=== PATIENT | female | born 1995 | race Caucasian/White ===

== ENCOUNTER 2021-01-31 09:27 | Emergency (ER) | payer MEDICAID, SELFPAY ==
[2021-01-31 09:32] VITALS: BP 105/67; PULSE 100; RESP 18; TEMP 36.8; O2SAT 98; BMI 20.5
--- NOTE | 2021-01-31 11:09 | ED_ITS ---
HPI - URI/Sore Throat General Chief Complaint: Upper Respiratory Symptoms Stated Complaint: NASAL CHEST COGESTION BODY ACHES Time Seen by Provider: 01/31/21 11:08 Source: patient Limitations: no limitations History of Present Illness HPI Narrative: 25 y/o femjorge presents with 2 days of upper respiratory symptoms. Two days ago she started sneezing, and yesterday she had a sore throat, with body aches, and headache. No fevers. No cough. She has not been vaccinated for COVID. Per daughter at school had a COVID exposure, but her daughter is asymptomatic. Patient can eat and drink and swallow and cn open her mouth all the way. She has been taking DayQuil and NyQuil. She has no significant medical history. MD elicited complaint: sore throat and nasal congestion Onset (ago): day(s) (2) Consistency: constant Severity: moderate Pain scale (0-10): 6 Able to tolerate fluids by mouth: Yes Exacerbating factors: nothing Relieving factors: OTC cold medicine Context: sick contacts Associated symptoms: myalgias, headache, nasal congestion and sore throat Treatments prior to arrival: cold medicine Related Data Previous Rx's Medication Instructions Recorded Magic Mouthwash 5 ml PO BID-TID #240 ml 01/31/21 Diphen/Lido/Antacid 1:1:1 240 mL suspension Allergies Allergy/AdvReac Type Severity Reaction Status Date / Time No Known Allergies Allergy Verified 01/31/21 11:54 Review of Systems Constitutional: Constitutional: Reports body ache(s), Denies chills, Reports fatigue, Denies fever(s), Reports headache(s), Reports malaise and Denies weakness Eyes: Eyes: Denies blurry vision and Denies diplopia ENT: Denies dizziness, Denies otalgia, Reports headache(s), Denies mouth pain, Reports nasal congestion, Reports nasal discharge, Denies odynophagia, Denies sinus pain, Denies sinus pressure, Reports sore throat and Denies throat swelling Cardiovascular: Cardiovascular: Denies chest pain, Denies lightheadedness and Denies dyspnea Respiratory: Respiratory: Denies chest congestion, Denies cough and Denies dyspnea Gastrointestinal: Gastrointestinal: Denies abdominal pain, Denies hematochezia, Denies constipation, Denies diarrhea, Denies nausea, Denies odynophagia and Denies vomiting Integumentary/Breasts: Skin/Breast: Denies erythema and Denies rash Neurologic: Denies confusion, Denies dizziness, Reports headache(s) and Denies weakness Psychiatric: Psychiatric: Denies anxiety, Denies confusion and Denies depression Endocrine: Endocrine: Reports fatigue Allergic/Immunologic: Allergic/Immunologic: Denies throat swelling PMFSH Past Medical History Medical History No known health problems Social History Social History Advance Directives: No Advance Directives Information Provided: No Patient : No Physical Exam Vital Signs: Vital Signs: Last Vital Signs Temp 98.2 F 01/31/21 09:32 Pulse 100 01/31/21 09:32 Resp 18 01/31/21 09:32 BP 105/67 01/31/21 09:32 Pulse Ox 98 01/31/21 09:32 Body Mass Index 20.5 Const: General: no acute distress and alert; No confusion Nutritional Appearance: well nourished Orientation/consciousness: patient oriented x3 and No confusion Limitations: no limitations HENMT: Head: Yes normal to inspection, Yes normocephalic and Yes atraumatic Ears: hearing grossly normal bilaterally, TM's normal bilaterally and EAC's normal General nose exam: Normal external nose present Face and sinus: Yes normal facial exam and Yes sinuses nontender Mouth: Normal oral and palatal mucosa present Throat: Yes uvula midline, No peritonsillar mass, Yes posterior oropharynx abnormal (Diffusely erythematous), No uvular edema and No cobblestoning Eyes: Pupils: Equal, round and reactive pupils present EOM: EOMs intact bilaterally Neck: Lymphatic: lymphadenopathy bilateral anterior cervical Resp: Effort & Inspection: normal respiratory effort and able to speak in comp lete sentences Auscultation: clear to auscultation bilaterally, no crackles, no rales, no rhonchi and no wheezes Cardio: Rate: regular rate Rhythm: regular rhythm Heart sounds: S1 normal heart sound present and S2 normal heart sound present Skin: General skin exam: no rashes or lesions noted Neuro: General: patient oriented x3 and No confusion Cranial nerves: Yes Equal, round and reactive pupils present Extrem: General: Yes normal to inspection and Yes full ROM Psych: Appearance: grossly normal Mental Status: mental status grossly normal Course Course Course Narrative: 25-year-old female with no significant medical history presents for 2 days of sore throat, body aches, headaches. No fever, no cough. Patient is able to eat and drink, no trismus. On exam, patient has lungs clear to auscultation bilaterally, has erythematous posterior oropharynx. COVID and strep are negative. Discharge patient with Magic mouthwash, counseled Motrin for throat pain, consult follow-up PCP, and return if her symptoms worsened. MDM - URI/Sore Throat Lab Data Labs: Lab Results 01/31/21 01/31/21 Range/Units 10:55 10:55 COVID-19 ([place]) Negative (Negative) COVID-19 Clin Com See Note S. pyogenes GrpA TAWANNA Negative (Negative) Discharge Plan Discharge Clinical Impression: Upper respiratory infection Qualifiers: URI type: acute pharyngitis Pharyngitis/tonsillitis etiology: unspecified etiology Qualified Code(s): J02.9 - Acute pharyngitis, unspecified Patient Disposition: Home, Self-Care Instructions: Pharyngitis (ED) Additional Instructions: Your strep and covid tests were negative today. Covid can be falsely negative, if you have worsening symptoms, please return for nother test. Stay out of work until you feel better. Take Motrin, 600mg every 6 hours. Use the magic mouthwash as prescribed. Please return if your symptoms get worse. Prescriptions: New Magic Mouthwash Diphen/Lido/Antacid 1:1:1 240 mL suspension 5 ml PO BID-TID Qty: 240 RF: 0 Stand Alone Forms: Work/School Release Interventions: ED Discharge Assessment Last Done: 01/31/21 12:10 Discharge Date/Time: 01/31/21 12:10
[2021-01-31 11:15] LABS: Strep A Nucleic Acid Negative (Negative)
[2021-01-31 11:20] LABS: COVID-19 Test Negative (Negative); IDNOW Serial# 9DD0AD1C
== END 2021-01-31 12:10 | disposition home or self-care (01) ==
PROVIDERS: Emergency Provider Student in an Organized Health Care Education/Training Program
DX: J02.9 Acute pharyngitis, unspecified (principal); Z20.822 Contact with and (suspected) exposure to COVID-19
CPT/HCPCS: 36415; 87635; 87651; 99283